=== PATIENT | female | born 1965 | race Caucasian/White ===

== ENCOUNTER 2016-07-22 09:50 | Day surgery (SDC) | payer BC ==
[~2016-07-22 09:50] MED LIST: LIDOCAINE HCL 1%/EPI 1:100,000 - 20 ML VIAL ONE; SODIUM BICARBONATE 8.4% - 50 ML VIAL ONE
[2016-07-22] MEDS ORDERED: LIDOCAINE HCL 1%/EPI 1:100,000 - 20 ML VIAL ONE (11:21)
[2016-07-22] MEDS ORDERED: SODIUM BICARBONATE 8.4% - 50 ML VIAL ONE (11:21)
--- NOTE | 2016-07-22 12:43 | GEN.OPNOTE ---
Operative Note Surgery Date: 07/22/16 Preoperative Diagnosis: Multiple skin lesions. Postoperative Diagnosis: Multiple skin lesions. Procedure: #1 excision skin tags from face, left axilla, and back. #2 shave excision skin lesions 2 from the back. #3 shave excision lesion face. #4 punch excisional biopsy of 2 pigmented lesions on the back. Surgeon: Eddie Solares MD Anesthesia Provider: Saira Solares Anesthesia Type: Local (1% Xylocaine with epinephrine and sodium bicarbonate) Estimated Blood Loss (mL): 1 Fluids: None. Pathology: Pigmented lesion on the face and the 2 pigmented lesions on the back were sent for pathologic analysis. Indications: Bothersome skin lesions. Findings: Multiple skin lesions. Complications: None. Operative Summary: The patient was taken to the operating room and placed on the operating table in a supine position. A surgical timeout was done. All areas were prepped with ChloraPrep and draped in a sterile fashion. All areas were infiltrated with 1% Xylocaine with epinephrine and sodium bicarbonate. 2 skin tags on the cheek were sharply excised. A pigmented seborrheic keratosis was excised with a shave biopsy technique. The base was cauterized and curetted. Hemostasis was assured. Band-Aids were placed. Attention was turned to the left axilla. 3 skin tags were excised sharply. Hemostasis was assured. Band-Aids were placed. Attention was turned to her back. 2 seborrheic keratoses were anesthetized and then cauterized and shaved. The bases were cauterized and Band-Aids were placed. There were 2 small pigmented skin lesions which were excised with a 4 mm punch biopsy. Hemostasis was assured. A simple suture was placed followed by an appropriate Band-Aids. Patient tolerated all aspects of the procedure well without complication. She was taken to outpatient surgery in stable condition. All counts were correct.
[2016-07-22 13:07] VITALS: RESP 20; TEMP 98.4
== END 2016-07-22 12:32 | disposition home or self-care (01) ==
LOC: SDSC 09:50
PROVIDERS: ATTEND Surgery
DX: L98.8 Other specified disorders of the skin and subcutaneous tissue (principal); L91.8 Other hypertrophic disorders of the skin